=== PATIENT | male | born 2000 | race Caucasian/White ===

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

== ENCOUNTER 2019-10-17 22:01 | Emergency (ER) | payer OTHER ==
[~2019-10-17] VITALS: Ht 185.4 cm; Wt 95.2 kg
[2019-10-17] MEDS ORDERED: AUGMENTIN 875-1 EACH PO (23:21)
== END 2019-10-18 00:08 | disposition home or self-care (01) ==
LOC: ED 22:01
DX: S61.250A Open bite of right index finger without damage to nail, initial encounter (principal); W53.01XA Bitten by mouse, initial encounter
CPT/HCPCS: 90471; 90715; 96372; 99283-25; J1670

== ENCOUNTER 2022-11-25 11:40 | Emergency (ER) | payer BC ==
[~2022-11-25] VITALS: Ht 185.4 cm; Wt 115.7 kg
[~2022-11-25 11:40] MED LIST: AUGMENTIN 875-1 EACH PO
[2022-11-25] MEDS ORDERED: OMEPRAZOLE20 MG PO (12:29)
[2022-11-25 12:51] LABS: BILIRUBIN, URINE NEGATIVE (negative); BLOOD/HGB, URINE LARGE (Negative); KETONE, URINE NEGATIVE (Negative); LEUK ESTERASE, URINE NEGATIVE (negative); NITRITE, URINE NEGATIVE (negative)
[2022-11-25 13:02] LABS: BACTERIA, URINE 2+ /hpf (negative); CASTS, URINE NONE SEEN \\lpf; CRYSTALS, URINE NONE SEEN (0-1+); EPITHELIAL CELLS, URINE 0 /lpf (0-1+); RED BLOOD CELLS, URINE >50 /hpf (0-5); WHITE BLOOD CELLS, URINE 0-1 /HPF (0-5)
[2022-11-25 13:03] LABS: COLLECTION TYPE, URINE CLEAN CATCH; REFLEX CULTURE, URINE Yes (No)
[2022-11-25 13:55] LABS: BASOPHILS 0.9 % (0-2); EOSINOPHILS 2.6 % (0-6); HEMOGLOBIN 14.3 g/dL (12.0-18.0); LYMPHOCYTES 30.2 % (24-44); MCH 27.1 (27-36); MCHC 33.4 g/dl (30-36); MCV 81.2 fl (81-99); MONOCYTES 11.4 % (0-12); NEUTROPHILS 54.9 % (39-80); PLATELET COUNT 279 K/uL (140-440); RBC 5.29 M/ul (4.3-5.7); RDW 14.7 (10.5-15.0)
[2022-11-25] MEDS ORDERED: CEPHALEXIN500 M1 PO (15:20)
[2022-11-25 15:33] LABS: ALBUMIN 3.7 g/dL (3.4-5.0); ALBUMIN/GLOBULIN RATIO 0.95 (1.1-2.4); BILIRUBIN, TOTAL 0.5 ng/dL (0.2-1.0); BUN/CREATININE RATIO 12.19 (6.0-28.6); CREATININE, SERUM 0.82 mg/dL (0.70-1.30); PROTEIN, TOTAL 7.6 g/dL (6.4-8.2)
[2022-11-25 16:20] VITALS: BP 119/78
== END 2022-11-25 16:20 | disposition home or self-care (01) ==
LOC: ED 11:40
PROVIDERS: Emergency Medicine
DX: N12 Tubulo-interstitial nephritis, not specified as acute or chronic (principal); K21.9 Gastro-esophageal reflux disease without esophagitis; Z79.899 Other long term (current) drug therapy
CPT/HCPCS: 36415; 74177; 80053; 81001; 85025; 87088; 99284-25; J0696; Q9967